=== PATIENT | male | born 1970 | race Two or more races ===

== ENCOUNTER 2022-12-16 19:59 | Emergency (ER) | payer MEDICAID, OTHER ==
[~2022-12-16] VITALS: Ht 182.9 cm; Wt 65.8 kg
--- NOTE | 2022-12-16 20:18 | NUR ---
DR. CATE CURRAN AT PT'S BEDSIDE FOR EVAL
--- NOTE | 2022-12-16 20:18 | NUR ---
ABBY [id number] FROM [place] FOR FLU LIKE SYMPTOMS X 2 MONTHS
--- NOTE | 2022-12-16 20:53 | NUR ---
CUSTOMER DATA TECHNICIAN AT PT'S BEDSIDE
[2022-12-16] MEDS ORDERED: ALBUTEROL SULFATE 8 GM HFA.AER.AD IH ONE (21:00)
--- NOTE | 2022-12-16 21:01 | NUR ---
REFUSED COVID AND FLU SWABS
[2022-12-16] MEDS ORDERED: ALBUTEROL FS 2.5 MG/3 ML VIAL.NEB ONE (21:19)
[2022-12-16] MEDS ORDERED: IPRATROPIUM NEB FS 0.5 MG/2.5 ML AMPUL.NEB ONE (21:19)
--- NOTE | 2022-12-16 21:23 | NUR ---
RT AT PT'S BEDSIDE FOR BREATHING TX
[2022-12-16] MEDS ORDERED: ALBUTEROL FS 2.5 MG/3 ML VIAL.NEB NEB ONE (21:30)
[2022-12-16] MEDS ORDERED: IPRATROPIUM NEB FS 0.5 MG/2.5 ML AMPUL.NEB NEB ONE (21:30)
[2022-12-16] MEDS ORDERED: PRED50TA PO (22:28)
[2022-12-16] MEDS ORDERED: ALBU18HF2 IH (22:28)
[2022-12-16] MEDS ORDERED: predniSONE 50 MG TABLET PO ONE (22:30)
--- NOTE | 2022-12-16 22:35 | NUR ---
Patient discharged to home in stable condition. Pt refused Written and verbal after care instructions and refused to sign DC paperwork.
[2022-12-16 22:36] VITALS: BP 119/81
== END 2022-12-16 22:38 | disposition home or self-care (01) ==
LOC: ER 20:01
DX: J44.9 Chronic obstructive pulmonary disease, unspecified (principal); R05.9 Cough, unspecified; F17.200 Nicotine dependence, unspecified, uncomplicated; Z88.0 Allergy status to penicillin; Z59.00 Homelessness unspecified; Z79.52 Long term (current) use of systemic steroids; Z79.51 Long term (current) use of inhaled steroids
CPT/HCPCS: 71045-TC